=== PATIENT | male | born 1970 | race Caucasian/White ===

== ENCOUNTER 2020-12-28 15:04 | Emergency (ER) | payer OTHER ==
[~2020-12-28] VITALS: Ht 188 cm; Wt 93.0 kg
[~2020-12-28 15:04] MED LIST: BACLOFEN20 MG PO; BUTRANS1 EAC1 TRANSDERM; DIAZEPAM 10 MG10 M2 PO; LEVSIN0.125 MG PO; PERCOCET 10-321 EACH PO; QUETIAPINE FUM300 MG PO; REMERON 30 MG T30 M1 PO; TOPROL XL100 MG PO
[2020-12-28 15:34] LABS: ABSOLUTE BASOPHILS 0.1 thou/uL (0.0-0.2); ABSOLUTE EOSINOPHILS 0.1 thou/uL (0.0-0.7); ABSOLUTE LYMPHOCYTES 1.4 thou/uL (0.8-5.3); ABSOLUTE MONOCYTES 1.3 thou/uL (0.0-1.2); ABSOLUTE NEUTROPHILS 15.8 thou/uL (1.6-8.1); BASOPHILS 0.6 %; EOSINOPHILS 0.6 %; HEMATOCRIT 31.3 % (42.0-52.0); HEMOGLOBIN 10.2 gm/dL (14.0-18.0); LYMPHOCYTES 7.5 %; MCH 30.9 pg (26.0-34.0); MCHC 32.7 g/dL (28.0-37.0); MCV 94.5 fL (80.0-100.0); MONOCYTES 6.8 %; MPV 5.8 fl. (7.2-11.1); NUCLEATED RBCS 0 /100WBC; PLATELET COUNT* 686 thou/uL (150-400); POLYS 84.5 %; RBC 3.31 mil/uL (4.50-6.00); RDW-CV 16.7 % (10.5-14.5); WBC 18.7 thou/uL (4.0-11.0)
[2020-12-28] MEDS ORDERED: SEROQUEL200 MG PO (15:37)
[2020-12-28] MEDS ORDERED: XANAX2 MG PO (15:37)
[2020-12-28] MEDS ORDERED: LEXAPRO 10 MG T10 M2 PO (15:37)
[2020-12-28] MEDS ORDERED: FLOMAX0.4 MG PO (15:38)
[2020-12-28] MEDS ORDERED: PERCOCET 10-321 EAC1 PO (15:38)
[2020-12-28 15:44] LABS: CALCIUM 9.6 mg/dL (8.5-10.1); CREATININE 1.3 mg/dL (0.6-1.3); POTASSIUM 4.2 mmol/L (3.5-5.1)
[2020-12-28 15:47] LABS: APTT 27.9 Seconds (25.0-31.3); PROTIME 10.3 Seconds (9.20-11.50)
[2020-12-28 15:55] LABS: ALBUMIN 2.9 g/dL (3.4-5.0); TOTAL BILIRUBIN 0.4 mg/dL (<0.1-1.0); TOTAL PROTEIN 7.8 g/dL (6.4-8.2)
[2020-12-28] MEDS ORDERED: PERCOCET 5-3251 EACH PO (18:07)
[2020-12-28] MEDS ORDERED: AUGMENTIN 875-1 EACH PO (18:07)
[2020-12-28] MEDS ORDERED: ZOFRAN ODT4 MG SUBLING (18:07)
[2020-12-28 18:15] VITALS: BP 148/83
--- NOTE | 2020-12-29 09:07 | EKG ---
[place] [address] ELECTROCARDIOGRAM REPORT Name: SHAVON MARKHAM Room: [facility]#: [id number] Admission: 12/28/20 Attend Phys: Discharge: 12/28/20 Date of : 66 Date of Service: 12/28/20 1547 Report #: [id number] THIS REPORT FOR: //name// [facility] ED Test Date: 2020-12-28 Test Time: 15:47:12 Pat Name: SHAVON MARKHAM Department: Room: Gender: Media Marketing Director: MILI : 1970 Requested By: Alber Muniz Order Number: [id number] MD: Jer Sheridan Measurements Intervals [place] Rate: 108 P: 62 NM: 147 QRS: 38 QRSD: 80 T: 63 QT: 315 QTc: 422 Interpretive Statements Sinus tachycardia Anteroseptal infarct, age indeterminate, possible No previous ECG available for comparison Electronically Signed On 12-29-2020 9:07:30 [employer] by Jer Sheridan [email or web address] <ELECTRONICALLY SIGNED> By: Jer Sheridan MD, [facility] 03/09/10 907 1547 154 Jer Sheridan MD, FAC /EPI
== END 2020-12-28 18:15 | disposition home or self-care (01) ==
LOC: M.ERS 15:04
PROVIDERS: Family Medicine
DX: K91.870 Postprocedural hematoma of a digestive system organ or structure following a digestive system procedure (principal); R10.9 Unspecified abdominal pain; I10 Essential (primary) hypertension; F17.210 Nicotine dependence, cigarettes, uncomplicated; Z98.890 Other specified postprocedural states; Z85.038 Personal history of other malignant neoplasm of large intestine; Z79.899 Other long term (current) drug therapy; Z88.8 Allergy status to other drugs, medicaments and biological substances; Y83.8 Other surgical procedures as the cause of abnormal reaction of the patient, or of later complication, without mention of misadventure at the time of the procedure

== ENCOUNTER 2021-02-05 11:10 | Inpatient (IN) | payer OTHER ==
[~2021-02-05] VITALS: Ht 188 cm; Wt 83.9 kg
[~2021-02-05 11:10] MED LIST changes: +AUGMENTIN 875-1 EACH PO; +FLOMAX0.4 MG PO; +LEXAPRO 10 MG T10 M2 PO; +PERCOCET 10-321 EAC1 PO; +PERCOCET 5-3251 EACH PO; +SEROQUEL200 MG PO; +XANAX2 MG PO; +ZOFRAN ODT4 MG SUBLING
[2021-02-05 11:18] VITALS: BP 151/103
[2021-02-05] MEDS ORDERED: DILAUDID1 MG/1 M1 PO (11:26)
[2021-02-05 11:44] LABS: ABSOLUTE BASOPHILS 0.1 thou/uL (0.0-0.2); ABSOLUTE EOSINOPHILS 0.2 thou/uL (0.0-0.7); ABSOLUTE LYMPHOCYTES 2.3 thou/uL (0.8-5.3); ABSOLUTE MONOCYTES 0.4 thou/uL (0.0-1.2); ABSOLUTE NEUTROPHILS 4.9 thou/uL (1.6-8.1); BASOPHILS 0.9 %; EOSINOPHILS 2.1 %; HEMATOCRIT 32.3 % (42.0-52.0); HEMOGLOBIN 10.7 gm/dL (14.0-18.0); MCH 28.3 pg (26.0-34.0); MCHC 33.2 g/dL (28.0-37.0); MCV 85.3 fL (80.0-100.0); MONOCYTES 5.6 %; MPV 5.9 fl. (7.2-11.1); NUCLEATED RBCS 0 /100WBC; PLATELET COUNT* 633 thou/uL (150-400); POLYS 62.4 %; RBC 3.79 mil/uL (4.50-6.00); RDW-CV 16.6 % (10.5-14.5); WBC 7.8 thou/uL (4.0-11.0)
[2021-02-05 12:05] LABS: ALBUMIN 2.9 g/dL (3.4-5.0); CALCIUM 9.2 mg/dL (8.5-10.1); CREATININE 1.1 mg/dL (0.6-1.3); POTASSIUM 3.6 mmol/L (3.5-5.1); TOTAL BILIRUBIN 0.2 mg/dL (<0.1-1.0); TOTAL PROTEIN 8.7 g/dL (6.4-8.2)
[2021-02-05 13:28] LABS: URINE BILIRUBIN NEGATIVE (Negative); URINE BLOOD NEGATIVE (Negative); URINE CLARITY CLEAR; URINE COLOR YELLOW; URINE GLUCOSE-RANDOM NEGATIVE (Negative); URINE KETONES NEGATIVE (Negative); URINE LEUKOCYTES-REFLEX NEGATIVE (Negative); URINE NITRITE-REFLEX NEGATIVE (Negative); URINE PROTEIN NEGATIVE (Negative); URINE SPECIFIC GRAVITY <= 1.005 (1.005-1.030); URINE UROBILINOGEN 0.2 E.U./dl (0.2-1.0)
[2021-02-05 18:30] VITALS: BP 108/80
[2021-02-06 00:40] VITALS: BP 126/73
[2021-02-06 04:52] LABS: HEMATOCRIT 25.9 % (42.0-52.0); HEMOGLOBIN 8.4 gm/dL (14.0-18.0); MCHC 32.6 g/dL (28.0-37.0); MCV 85.9 fL (80.0-100.0); MPV 6.1 fl. (7.2-11.1); RBC 3.01 mil/uL (4.50-6.00); RDW-CV 16.7 % (10.5-14.5); WBC 5.8 thou/uL (4.0-11.0)
[2021-02-06 04:58] LABS: CALCIUM 8.6 mg/dL (8.5-10.1); CREATININE 1.1 mg/dL (0.6-1.3); MAGNESIUM 1.9 mg/dL (1.8-2.4); POTASSIUM 4.1 mmol/L (3.5-5.1)
[2021-02-06 06:08] VITALS: BP 128/72
[2021-02-06 08:15] VITALS: BP 121/80
--- NOTE | 2021-02-06 14:44 | EKG ---
[place] [address] ELECTROCARDIOGRAM REPORT Name: SHAVON MARKHAM Room: [address] ADM IN M.R.#: [id number] Admission: 02/05/21 Attend Phys: Joe De La O, Discharge: Date of : 66 Date of Service: 02/05/21 1514 Report #: [id number] THIS REPORT FOR: //name// [facility] ED Test Date: 2021-02-05 Test Time: 15:14:25 Pat Name: SHAVON BAKERDE Department: Room: [facility] Gender: M Manager Marketing Communication: DAWIT : 1970 Requested By: Sundeep Olivera Order Number: [id number] MD: Mark Mike Measurements Intervals [place] Rate: 81 P: 54 [place]: 165 QRS: 33 QRSD: 90 T: 55 QT: 362 QTc: 421 Interpretive Statements Sinus rhythm with sinus arrhythmia Minimal ST depression, anterolateral leads Baseline wander in lead(s) V6 Compared to ECG 12/28/2020 15:47:12 Sinus rate has slowed and sinus arrhythmia is noted Myocardial infarct finding no longer present Electronically Signed On 02-06-2021 14:44:13 CDT by Mark Mike [email or web address] <ELECTRONICALLY SIGNED> By: Mark Mike MD, [facility] 02/06/21 1444 1514 1514 Mark Mike MD, [facility] /EPI
[2021-02-06 16:07] VITALS: BP 129/78
[2021-02-06 20:00] VITALS: BP 124/70
[2021-02-07 04:07] LABS: HEMATOCRIT 27.2 % (42.0-52.0); HEMOGLOBIN 8.9 gm/dL (14.0-18.0); MCH 27.9 pg (26.0-34.0); MCHC 32.7 g/dL (28.0-37.0); MCV 85.3 fL (80.0-100.0); MPV 6.1 fl. (7.2-11.1); RBC 3.19 mil/uL (4.50-6.00); RDW-CV 16.8 % (10.5-14.5); WBC 5.9 thou/uL (4.0-11.0)
[2021-02-07 04:21] LABS: CALCIUM 9.1 mg/dL (8.5-10.1); CREATININE 0.8 mg/dL (0.6-1.3); POTASSIUM 3.7 mmol/L (3.5-5.1)
[2021-02-07 08:15] VITALS: BP 129/69
[2021-02-07 09:28] VITALS: BP 129/69
[2021-02-07 10:30] VITALS: BP 129/69
== END 2021-02-07 12:20 | disposition home or self-care (01) | DRG 863 ==
LOC: M.ERS 11:10 → M.TBA-ER 14:18 → M.ORTHSURG 14:18
PROVIDERS: Physician Assistant; ADMIT Internal Medicine; ATTEND Internal Medicine
DX: T81.49XA Infection following a procedure, other surgical site, initial encounter (principal); E44.0 Moderate protein-calorie malnutrition; R18.8 Other ascites; I10 Essential (primary) hypertension; F41.1 Generalized anxiety disorder; F17.210 Nicotine dependence, cigarettes, uncomplicated; F32.9 Major depressive disorder, single episode, unspecified; Y83.8 Other surgical procedures as the cause of abnormal reaction of the patient, or of later complication, without mention of misadventure at the time of the procedure; Z20.822 Contact with and (suspected) exposure to COVID-19; Z90.49 Acquired absence of other specified parts of digestive tract; Z88.8 Allergy status to other drugs, medicaments and biological substances; Z79.899 Other long term (current) drug therapy; Z68.23 Body mass index [BMI] 23.0-23.9, adult; Z85.038 Personal history of other malignant neoplasm of large intestine; Y92.89 Other specified places as the place of occurrence of the external cause

== ENCOUNTER 2021-11-16 07:02 | Emergency (ER) | payer OTHER ==
[~2021-11-16] VITALS: Ht 188 cm; Wt 88.5 kg
[~2021-11-16 07:02] MED LIST changes: +DILAUDID1 MG/1 M1 PO
[2021-11-16 09:30] VITALS: BP 144/75
== END 2021-11-16 09:31 | disposition left against medical advice (07) ==
LOC: M.ERS 07:02
DX: M54.2 Cervicalgia (principal); M25.511 Pain in right shoulder; I10 Essential (primary) hypertension; Z53.21 Procedure and treatment not carried out due to patient leaving prior to being seen by health care provider; Z98.890 Other specified postprocedural states; Z85.038 Personal history of other malignant neoplasm of large intestine; Z90.89 Acquired absence of other organs; Z88.8 Allergy status to other drugs, medicaments and biological substances